=== PATIENT | female | born 1945 | race Caucasian/White ===

== ENCOUNTER 2019-04-10 21:38 | Emergency (ER) | payer MEDICARE ==
[2019-04-10 22:33] LABS: #Basophils 0.1 thou/uL (0.0-0.2); #Eosinphils 0.3 thou/uL (0.0-0.7); #Monocytes 0.7 thou/uL (0.11-0.59); #Neutrophils 5.2 thou/uL (1.40-6.50); %Basophils 1.3 % (0.0-1.0); %Eosinophils 2.4 % (0.0-10.0); %Lymphocytes 44.2 % (21.0-51.0); %Neutrophils 46.1 % (42.0-75.0); Hemoglobin 12.7 g/dL (12.0-16.0); Mean Corpuscular Hemoglobin 30.6 pg (27.0-31.0); Mean Corpuscular Volume 87.6 fL (78.0-98.0); Mean Platelet Volume 9.5 fL (7.4-10.4); Platelet Count 288 thou/uL (130-400); RBC Distribution Width 11.5 % (11.5-14.5); Red Blood Cell (RBC) Count 4.14 mill/uL (4.20-5.40); White Blood Cell (WBC) Count 11.3 thou/uL (4.8-10.8)
[2019-04-10 22:34] LABS: Bilirubin Negative (Negative); Blood, Urine Negative (Negative); Clarity Clear (Clear); Glucose, Urine (Dipstick) Negative (Negative); Leukocyte Small (Negative); Nitrite Negative (Negative); Protein, Urine (Dipstick) Negative (Neg-Trace); Urobilinogen 0.2 mg/dL (0.2-1.0); pH, Urine 5.5 (5.0-9.0)
[2019-04-10 22:39] LABS: Specific Gravity, Urine 1.003 (1.002-1.036)
[2019-04-10 22:43] LABS: Bacteria/HPF None Seen HPF (None Seen); Hyaline Casts/LPF NONE SEEN LPF (0-3 Hyaline); RBC/HPF None Seen HPF (0-3); Squamous Epithelial 0-3 HPF (0-3)
[2019-04-10 22:48] LABS: ALT (SGPT) 8 U/L (8-55); AST (SGOT) 13 U/L (5-34); Albumin 4.2 g/dL (3.4-4.8); Alkaline Phosphatase 77 U/L (40-150); Anion Gap 11 mmol/L (10-20); BUN (Urea Nitrogen) 10 mg/dL (9.8-20.1); Bilirubin, Total 0.3 mg/dL (0.2-1.2); Calc. Creatinine Clearance 0 mL/min (70-130); Calcium 9.2 mg/dL (7.8-10.44); Carbon Dioxide 28 mmol/L (23-31); Chloride 105 mmol/L (98-107); Estimated GFR-MDRD 59; Globulin 2.5 g/dL (2.4-3.5); Glucose 81 mg/dL (83-110); Lipase 15 U/L (8-78); Potassium 3.5 mmol/L (3.5-5.1); Protein, Total 6.7 g/dL (6.0-8.3); Sodium 140 mmol/L (136-145)
--- NOTE | 2019-04-10 23:10 | CT ---
CT Abdomen Pelvis WO Con 04/10/2019 10:14 PM HISTORY: Abdominal pain. Foul-smelling urine and black stools. COMPARISON: 01/09/2013. Technique: Multiple contiguous axial CT images are obtained through the abdomen and pelvis without IV contrast. Coronal reformats are provided. FINDINGS: This examination is limited for the evaluation of solid organs and vascular structures due to the lac k of intravenous contrast. Lower Chest: A calcified granuloma is seen at the right lung base. The lung bases are otherwise clear . Abdomen: Liver: Few calcified granulomata are seen in the left hepatic lobe. A subcentimeter too small to clement acterize hypodense lesion is seen at the posterior aspect posterior segment left hepatic lobe. Gallbladder: Postcholecystectomy changes. Pancreas: Atrophy and fatty replaced but otherwise demonstrates grossly normal nonenhanced CT appeara nce. Spleen: Calcified granulomata are seen. Adrenals: within normal limits. Kidneys: No renal calculi are visualized, and there is no evidence of hydronephrosis. Ureters: No ureteral calculus is seen.. Pelvis: Urinary bladder: Decompressed but grossly normal nonenhanced CT appearance. Reproductive Organs: There is evidence of hysterectomy. Lymph Nodes: No enlarged lymph nodes. Bowel: Postsurgical changes of the stomach are seen. There is colonic diverticulosis. Small amount of retained fecal material is seen throughout the colon. Appendix: The appendix is normal in caliber. Peritoneum: No free fluid, free air, or fluid collection. Retroperitoneum: within normal limits. Vessels: Vascular calcifications are seen in the abdominal aorta and involving the iliac arteries.. Abdominal Wall: A tiny fat-containing umbilical hernia is present. Bones: Degenerative changes are again seen in the spine which do appear mildly progressed from prior exam. IMPRESSION: 1. No renal or ureteral calculi are seen bilaterally. 2. No CT evidence of appendicitis. 3. Postsurgical changes related to cholecystectomy with postsurgical changes involving the stomach. 4. Colonic diverticulosis.
[2019-04-10] MEDS ORDERED: Bacitracin Zinc 1 Packet ONE (23:19)
== END 2019-04-10 23:28 | disposition home or self-care (01) ==
LOC: SCSER 21:38
DX: S51.851A Open bite of right forearm, initial encounter (principal); N39.0 Urinary tract infection, site not specified; E03.9 Hypothyroidism, unspecified; M06.9 Rheumatoid arthritis, unspecified; I10 Essential (primary) hypertension; I49.9 Cardiac arrhythmia, unspecified; F41.9 Anxiety disorder, unspecified; F32.9 Major depressive disorder, single episode, unspecified; I25.10 Atherosclerotic heart disease of native coronary artery without angina pectoris; Z86.73 Personal history of transient ischemic attack (TIA), and cerebral infarction without residual deficits; W54.0XXA Bitten by dog, initial encounter
CPT/HCPCS: 36415; 74176; 80053; 81003; 81015; 82274; 83605; 83690; 85025; 87086

== ENCOUNTER 2019-07-06 13:47 | Emergency (ER) | payer MEDICARE ==
[2019-07-06 14:48] LABS: #Basophils 0.1 thou/uL (0.0-0.2); #Eosinphils 0.2 thou/uL (0.0-0.7); #Lymphocytes 3.4 thou/uL (1.20-3.40); #Monocytes 0.6 thou/uL (0.11-0.59); #Neutrophils 4.1 thou/uL (1.40-6.50); %Basophils 1.1 % (0.0-1.0); %Eosinophils 2.2 % (0.0-10.0); %Lymphocytes 40.3 % (21.0-51.0); %Monocytes 7.6 % (0.0-10.0); %Neutrophils 48.9 % (42.0-75.0); Hemoglobin 13.9 g/dL (12.0-16.0); Mean Corpuscular HGB CONC 34.1 g/dL (32.0-36.0); Mean Platelet Volume 8.6 fL (7.4-10.4); Platelet Count 352 thou/uL (130-400); RBC Distribution Width 11.6 % (11.5-14.5); Red Blood Cell (RBC) Count 4.64 mill/uL (4.20-5.40); White Blood Cell (WBC) Count 8.4 thou/uL (4.8-10.8)
--- NOTE | 2019-07-06 14:54 | CT ---
CT HEAD WITHOUT IV CONTRAST COMPARISON: 08/10/2016 HISTORY: Headache for past 24 hours with associated blurred vision. TECHNIQUE: Axial CT imaging at 5 mm intervals from vertex through skull base without contrast FINDINGS: There is mild cerebral volume loss similar to the prior study and not unexpected for patient's age. T here is no evidence of an acute infarction, hemorrhage, mass effect, or midline shift. The ventricular system is normal in size, shape, and position. Visualized paranasal sinuses are clear. Osseous structures appear intact. IMPRESSION: 1. No acute intracranial abnormality demonstrated.
[2019-07-06 15:11] LABS: ALT (SGPT) 17 U/L (8-55); AST (SGOT) 17 U/L (5-34); Albumin 4.2 g/dL (3.4-4.8); Alkaline Phosphatase 85 U/L (40-150); Anion Gap 13 mmol/L (10-20); BUN (Urea Nitrogen) 12 mg/dL (9.8-20.1); Bilirubin, Total 0.5 mg/dL (0.2-1.2); CK (CPK) 21 U/L (29-168); Calc. Creatinine Clearance 0 mL/min (70-130); Calcium 9.5 mg/dL (7.8-10.44); Carbon Dioxide 25 mmol/L (23-31); Chloride 106 mmol/L (98-107); Estimated GFR-MDRD 68; Globulin 2.7 g/dL (2.4-3.5); Glucose 98 mg/dL (83-110); Potassium 3.7 mmol/L (3.5-5.1); Protein, Total 6.9 g/dL (6.0-8.3); Sodium 140 mmol/L (136-145)
--- NOTE | 2019-07-06 15:14 | RAD ---
PORTABLE CHEST: HISTORY: Headache. FINDINGS: Lung burch are clear. Heart and mediastinum unremarkable. Vascular markings normal. Heart size wi thin normal range. IMPRESSION: No acute process. POS: [facility]
[2019-07-06] MEDS ORDERED: Ketorolac Tromethamine 30 MG/ML VIAL ONE (16:31)
[2019-07-06] MEDS ORDERED: Magnesium 2 GM/50 ML BAG (IN WATER) ONE (16:31)
[2019-07-06 16:35] LABS: Bilirubin Negative (Negative); Blood, Urine Negative (Negative); Glucose, Urine (Dipstick) Negative (Negative); Leukocyte Moderate (Negative); Nitrite Positive (Negative); Protein, Urine (Dipstick) Negative (Neg-Trace); Urobilinogen 0.2 mg/dL (Less than 2)
[2019-07-06 16:36] LABS: Clarity Hazy (Clear)
[2019-07-06 16:50] LABS: RBC/HPF 0-3 HPF (0-3); Squamous Epithelial 0-3 HPF (0-3)
[2019-07-06 16:51] LABS: Bacteria/HPF 3+ HPF (None Seen)
== END 2019-07-06 17:29 | disposition home or self-care (01) ==
LOC: ERS 13:47
DX: R51 Headache (principal); N39.0 Urinary tract infection, site not specified; I10 Essential (primary) hypertension; K21.9 Gastro-esophageal reflux disease without esophagitis; I25.10 Atherosclerotic heart disease of native coronary artery without angina pectoris; E03.9 Hypothyroidism, unspecified; F41.9 Anxiety disorder, unspecified; F32.9 Major depressive disorder, single episode, unspecified; Z79.899 Other long term (current) drug therapy
CPT/HCPCS: 70450; 71045; 80053; 81003; 81015; 82550; 83690; 84484; 85025; 87077; 87086; 87186; 93005; 96361; 96365; 96374; J1885; J3475

== ENCOUNTER 2019-08-24 10:37 | Outpatient (CLI) | payer MEDICARE ==
--- NOTE | 2019-08-24 11:31 | ULT ---
EXAM: Bilateral lower extremity venous duplex: Deep veins evaluated with color Doppler, spectral analysis, and compression. INDICATIONS: Bilateral lower extremity pain and edema. FINDINGS: Deep veins interrogated include common femoral vein, femoral vein, popliteal vein, and post erior tibial vein. These veins show normal compression and blood flow. No evidence of DVT. Focal fluid echogenicity of the right popliteal region approximately 2.9 x 0.3 cm suggests a Fierro cy st. Smaller probable Fierro cyst of the left popliteal fossa, as well, approximately 1.5 cm in length. IMPRESSION: Negative Bilateral venous duplex exam. Fierro cyst of bilateral popliteal fossa, as above.
--- NOTE | 2019-08-24 12:24 | MMO ---
Bilateral MAMMO Bilat Screen [facility]. CLINICAL HISTORY: Patient is 73 years old and is seen for screening. The patient has the following family history of breast cancer: aunt, at age 36. The patient has no personal history of cancer. The patient has a history of right Lumpectomy in 1984 - benign. VIEWS: The views performed were: bilateral craniocaudal with tomosynthesis and bilateral mediolateral oblique with tomosynthesis. This study has been interpreted with the assistance of computer-aided detection. MAMMOGRAM FINDINGS: There are scattered fibroglandular densities. There are benign appearing calcifications seen in both breasts. There are also vascular calcifications. There are no suspicious masses, suspicious calcifications, or new areas of architectural distortion. IMPRESSION: THERE IS NO MAMMOGRAPHIC EVIDENCE OF MALIGNANCY. A ROUTINE FOLLOW-UP MAMMOGRAM IN 1 YEAR IS RECOMMENDED. THE RESULTS OF THIS EXAM WERE SENT TO THE PATIENT. ACR BI-RADS Category 2 - Benign finding MAMMOGRAPHY NOTE: 1. A negative mammogram report should not delay a biopsy if a dominant of clinically suspicious mass is present. 2. Approximately 10% to 15% of breast cancers are not detected by mammography. 3. Adenosis and dense breasts may obscure an underlying neoplasm. Reported by: TAMARA PATEL MD Electonically Signed: [id number]
== END 2019-08-24 10:38 | disposition home or self-care (01) ==
LOC: ULT 10:37
PROVIDERS: ATTEND Student in an Organized Health Care Education/Training Program
DX: Z12.31 Encounter for screening mammogram for malignant neoplasm of breast (principal); R22.42 Localized swelling, mass and lump, left lower limb; M71.22 Synovial cyst of popliteal space [Baker], left knee; M71.21 Synovial cyst of popliteal space [Baker], right knee
CPT/HCPCS: 77063; 77067; 93970

== ENCOUNTER 2019-09-23 22:30 | Emergency (ER) | payer MEDICARE ==
[2019-09-23 23:20] LABS: Bilirubin Negative (Negative); Blood, Urine Negative (Negative); Clarity Clear (Clear); Glucose, Urine (Dipstick) Normal (Negative); Leukocyte 25 Leu/uL (Negative); Nitrite Negative (Negative); Protein, Urine (Dipstick) Negative (Neg-Trace); RBC/HPF 0-3 HPF (0-3); Renal Epithelial 0-3 HPF (None Seen); Squamous Epithelial 0-3 HPF (0-3); Urobilinogen Normal mg/dL (Less than 2)
[2019-09-23 23:24] LABS: Bacteria/HPF 3+ HPF (None Seen)
[2019-09-23 23:36] LABS: #Basophils 0.1 thou/uL (0.0-0.2); #Eosinphils 0.3 thou/uL (0.0-0.7); #Lymphocytes 4.2 thou/uL (1.20-3.40); #Monocytes 0.8 thou/uL (0.11-0.59); #Neutrophils 6.4 thou/uL (1.40-6.50); %Basophils 1.1 % (0.0-1.0); %Eosinophils 2.4 % (0.0-10.0); %Lymphocytes 35.6 % (21.0-51.0); %Monocytes 6.7 % (0.0-10.0); %Neutrophils 54.2 % (42.0-75.0); Mean Corpuscular HGB CONC 34.3 g/dL (32.0-36.0); Mean Corpuscular Hemoglobin 29.9 pg (27.0-31.0); Mean Corpuscular Volume 87.4 fL (78.0-98.0); Mean Platelet Volume 8.6 fL (7.4-10.4); Platelet Count 341 thou/uL (130-400); RBC Distribution Width 11.6 % (11.5-14.5); Red Blood Cell (RBC) Count 4.34 mill/uL (4.20-5.40); White Blood Cell (WBC) Count 11.8 thou/uL (4.8-10.8)
[2019-09-23] MEDS ORDERED: Ketorolac Tromethamine 30 MG/ML VIAL ONE (23:38)
[2019-09-23 23:58] LABS: ALT (SGPT) 8 U/L (8-55); AST (SGOT) 13 U/L (5-34); Albumin 4.3 g/dL (3.4-4.8); Alkaline Phosphatase 100 U/L (40-110); Anion Gap 14 mmol/L (10-20); BUN (Urea Nitrogen) 12 mg/dL (9.8-20.1); Bilirubin, Total 0.3 mg/dL (0.2-1.2); CK (CPK) 35 U/L (29-168); Calc. Creatinine Clearance 0 mL/min (70-130); Carbon Dioxide 26 mmol/L (23-31); Chloride 105 mmol/L (98-107); Estimated GFR-MDRD 53; Globulin 2.2 g/dL (2.4-3.5); Glucose 107 mg/dL (83-110); Lipase 11 U/L (8-78); Potassium 3.6 mmol/L (3.5-5.1); Protein, Total 6.5 g/dL (6.0-8.3); Sodium 141 mmol/L (136-145)
== END 2019-09-24 01:19 | disposition home or self-care (01) ==
LOC: ERS 22:30
DX: M62.838 Other muscle spasm (principal); R35.0 Frequency of micturition; I25.10 Atherosclerotic heart disease of native coronary artery without angina pectoris; I49.9 Cardiac arrhythmia, unspecified; E03.9 Hypothyroidism, unspecified; I10 Essential (primary) hypertension; M79.7 Fibromyalgia; K21.9 Gastro-esophageal reflux disease without esophagitis; F41.9 Anxiety disorder, unspecified; F32.9 Major depressive disorder, single episode, unspecified; Z86.73 Personal history of transient ischemic attack (TIA), and cerebral infarction without residual deficits; Z79.899 Other long term (current) drug therapy
CPT/HCPCS: 36415; 80053; 81003; 81015; 82550; 83690; 84484; 85025; 87077; 87086; 87186; 93005; 96374; J1885

== ENCOUNTER 2019-10-03 12:41 | Emergency (ER) | payer MEDICARE ==
[2019-10-03 13:36] LABS: Bilirubin Negative (Negative); Blood, Urine Negative (Negative); Clarity Clear (Clear); Glucose, Urine (Dipstick) Normal (Negative); Leukocyte Negative Leu/uL (Negative); Nitrite Negative (Negative); Protein, Urine (Dipstick) Negative (Neg-Trace); Urobilinogen Normal mg/dL (Less than 2)
--- NOTE | 2019-10-03 14:11 | RAD ---
2 view chest: [10/03/2019] Comparion:None available HISTORY: Right-sided rib pain, urinary tract infection FINDINGS: Postsurgical anchors overlie the right humeral head. No pneumothorax or pleural fluid. No f ocal consolidation or alveolar edema. There is multilevel mid thoracic spine disc space narrowing with degenerative endplate change and anterior osteophyte formation. IMPRESSION: No acute findings.
--- NOTE | 2019-10-03 14:20 | RAD ---
Radiograph right knee 4 views: DATE: 10/03/2019 HISTORY: Acute traumatic injury to right knee. FINDINGS: Small joint effusion. Patellofemoral compartment: Significant joint space narrowing and moderate osteophytosis. Medial compartment: High-grade joint space narrowing. Moderate osteophytosis. Lateral compartment: Little or no joint space narrowing. Mild to moderate osteophytosis. Diffuse osteopenia. No dislocation. No fracture identified. IMPRESSION: 1. No acute fracture identified. 2. 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 3. Small joint effusion. 4. Osteopenia.
--- NOTE | 2019-10-03 14:21 | RAD ---
Radiograph right ribs 3 views: DATE: 10/03/2019 HISTORY: 73-year-old female with acute traumatic right rib pain FINDINGS: Diffuse osteopenia. Small metallic anchors at inferior glenoid and humeral head. No displaced acute r ight rib fracture identified. Right lateral costophrenic angle is sharp. No right-sided pneumothorax identified. Right lung is relatively clear. IMPRESSION: 1. No acute right rib fracture identified. 2. Status post right rotator cuff repair.
[2019-10-03] MEDS ORDERED: HYDROcodone/Acetaminophen 10/325 mg Tablet ONE (16:14)
== END 2019-10-03 16:29 | disposition home or self-care (01) ==
LOC: ERS 12:41
DX: S83.91XA Sprain of unspecified site of right knee, initial encounter (principal); S20.211A Contusion of right front wall of thorax, initial encounter; K21.9 Gastro-esophageal reflux disease without esophagitis; E03.9 Hypothyroidism, unspecified; I25.10 Atherosclerotic heart disease of native coronary artery without angina pectoris; M06.9 Rheumatoid arthritis, unspecified; M41.9 Scoliosis, unspecified; F41.9 Anxiety disorder, unspecified; Z86.73 Personal history of transient ischemic attack (TIA), and cerebral infarction without residual deficits; X50.0XXA Overexertion from strenuous movement or load, initial encounter
CPT/HCPCS: 71046; 81003

== ENCOUNTER 2021-01-12 16:54 | Emergency (ER) | payer MEDICARE ==
--- NOTE | 2021-01-12 21:12 | RAD ---
Frontal radiograph pelvis: 01/12/2021 COMPARISON: 07/26/2011 HISTORY: Pain and swelling of the left lower extremity FINDINGS: There is no widening of the sacroiliac joints or the pubic symphysis. The pelvic ring is in tact. The femoral heads project normally over the respective acetabulum. No displaced fracture seen. IMPRESSION: No acute fracture or dislocation noted.
--- NOTE | 2021-01-12 21:38 | ULT ---
Left lower extremity venous Doppler ultrasound: 01/12/2021 COMPARISON: None HISTORY: Left lower extremity pain, redness, assess for DVT TECHNIQUE: Multiplanar grayscale sonographic imaging of the venous structures of the left lower extre mity obtained with color flow and spectral analysis FINDINGS: Left common femoral vein, greater saphenous vein, profunda femoral vein, femoral vein, popl iteal vein, and posterior tibial vein are patent. Normal blood flow, augmentation, and compression within the deep venous system on the left. No evidence for deep venous thrombosis. IMPRESSION: No evidence for deep venous thrombosis of the left lower extremity.
[2021-01-12 22:08] LABS: #Basophils 0.1 thou/uL (0.0-0.2); #Eosinphils 0.2 thou/uL (0.0-0.7); #Lymphocytes 4.7 thou/uL (1.20-3.40); #Monocytes 0.6 thou/uL (0.11-0.59); #Neutrophils 6.4 thou/uL (1.40-6.50); %Basophils 0.4 % (0.0-1.0); %Eosinophils 1.5 % (0.0-10.0); %Lymphocytes 38.9 % (21.0-51.0); %Monocytes 5.4 % (0.0-10.0); %Neutrophils 53.8 % (42.0-75.0); Hemoglobin 13.7 g/dL (12.0-16.0); Mean Corpuscular HGB CONC 34.3 g/dL (32.0-36.0); Mean Corpuscular Hemoglobin 30.8 pg (27.0-31.0); Mean Corpuscular Volume 89.7 fL (78.0-98.0); Mean Platelet Volume 8.8 fL (7.4-10.4); Platelet Count 321 thou/uL (130-400); RBC Distribution Width 11.9 % (11.5-14.5); Red Blood Cell (RBC) Count 4.46 mill/uL (4.20-5.40); White Blood Cell (WBC) Count 11.9 thou/uL (4.8-10.8)
[2021-01-12 22:31] LABS: ALT (SGPT) 7 U/L (8-55); AST (SGOT) 13 U/L (5-34); Albumin 4.1 g/dL (3.4-4.8); Alkaline Phosphatase 75 U/L (40-110); Anion Gap 12 mmol/L (10-20); BUN (Urea Nitrogen) 15 mg/dL (9.8-20.1); Bilirubin, Total 0.4 mg/dL (0.2-1.2); Calc. Creatinine Clearance 0 mL/min (70-130); Carbon Dioxide 28 mmol/L (23-31); Chloride 108 mmol/L (98-107); Globulin 2.7 g/dL (2.4-3.5); Glucose 102 mg/dL (83-110); Potassium 3.7 mmol/L (3.5-5.1); Protein, Total 6.8 g/dL (5.8-8.1); Sodium 144 mmol/L (136-145)
[2021-01-12] MEDS ORDERED: Morphine 4 MG/ML VIAL ONE (22:57)
== END 2021-01-12 23:15 | disposition home or self-care (01) ==
LOC: ERS 16:54
DX: M79.662 Pain in left lower leg (principal); K21.9 Gastro-esophageal reflux disease without esophagitis; I25.10 Atherosclerotic heart disease of native coronary artery without angina pectoris; E03.9 Hypothyroidism, unspecified; I10 Essential (primary) hypertension; M79.7 Fibromyalgia; M06.9 Rheumatoid arthritis, unspecified; Z86.73 Personal history of transient ischemic attack (TIA), and cerebral infarction without residual deficits; I48.91 Unspecified atrial fibrillation
CPT/HCPCS: 36415; 72170; 80053; 85025; 85379; 96372; J2270

== ENCOUNTER 2021-01-20 17:50 | Emergency (ER) | payer MEDICARE ==
--- NOTE | 2021-01-20 18:22 | RAD ---
Exam:Exam: 4 views left knee HISTORY: Fall 3 weeks ago. Persistent pain COMPARISON: 04/04/2005 FINDINGS: Scattered demineralization involving the distal femur, proximal tibia centered along the louise int space. Mild loss of joint space height along the medial compartment. No acute fracture. There is no joint effusion. IMPRESSION: No joint effusion. No fracture. If there is concern for internal derangement, consider MR Yfn.
[2021-01-20] MEDS ORDERED: Ketorolac Tromethamine 30 MG/ML VIAL ONE (19:15)
== END 2021-01-20 19:30 | disposition home or self-care (01) ==
LOC: ERS 17:50
DX: M25.562 Pain in left knee (principal); K21.9 Gastro-esophageal reflux disease without esophagitis; I25.10 Atherosclerotic heart disease of native coronary artery without angina pectoris; E03.9 Hypothyroidism, unspecified; M79.7 Fibromyalgia; M06.9 Rheumatoid arthritis, unspecified; I10 Essential (primary) hypertension; M41.9 Scoliosis, unspecified; I48.91 Unspecified atrial fibrillation; M32.9 Systemic lupus erythematosus, unspecified; Z86.73 Personal history of transient ischemic attack (TIA), and cerebral infarction without residual deficits
CPT/HCPCS: 96372; J1885

== ENCOUNTER 2021-07-22 15:01 | Emergency (ER) | payer MEDICARE ==
[2021-07-22] MEDS ORDERED: Ketorolac Tromethamine 30 MG/ML VIAL ONE ×2 (16:18)
== END 2021-07-22 16:50 | disposition home or self-care (01) ==
LOC: ERS 15:01
DX: M17.12 Unilateral primary osteoarthritis, left knee (principal); K21.9 Gastro-esophageal reflux disease without esophagitis; E03.9 Hypothyroidism, unspecified; I10 Essential (primary) hypertension; M06.9 Rheumatoid arthritis, unspecified
CPT/HCPCS: 96372; J1885

== ENCOUNTER 2021-08-28 16:22 | Outpatient (CLI) | payer MEDICARE | END 2021-08-28 16:23 | disposition home or self-care (01) | LOC: RAD-FRANK 16:22 | PROVIDERS: ATTEND Nurse Practitioner Family | DX: M25.511 Pain in right shoulder (principal) ==

== ENCOUNTER 2021-10-14 08:20 | Outpatient (CLI) | payer MEDICARE | END 2021-10-14 08:21 | disposition home or self-care (01) | LOC: RAD-FRANK 08:20 | PROVIDERS: ATTEND Nurse Practitioner Family | DX: S52.591S Other fractures of lower end of right radius, sequela (principal); S92.331A Displaced fracture of third metatarsal bone, right foot, initial encounter for closed fracture; S92.341A Displaced fracture of fourth metatarsal bone, right foot, initial encounter for closed fracture ==

== ENCOUNTER 2022-03-27 09:15 | Outpatient (CLI) | payer MEDICARE | END 2022-03-27 09:16 | disposition home or self-care (01) | LOC: TBSIIMAG 09:15 | PROVIDERS: ATTEND Neurological Surgery | DX: M48.56XA Collapsed vertebra, not elsewhere classified, lumbar region, initial encounter for fracture (principal); M47.816 Spondylosis without myelopathy or radiculopathy, lumbar region | CPT/HCPCS: 72100 ==

== ENCOUNTER 2022-04-11 08:58 | Outpatient (CLI) | payer OTHER | END 2022-04-11 08:59 | disposition home or self-care (01) | LOC: TBSIIMAG 08:58 | PROVIDERS: ATTEND Neurological Surgery | DX: M48.062 Spinal stenosis, lumbar region with neurogenic claudication (principal); M54.2 Cervicalgia; M47.812 Spondylosis without myelopathy or radiculopathy, cervical region; M47.813 Spondylosis without myelopathy or radiculopathy, cervicothoracic region; S32.030A Wedge compression fracture of third lumbar vertebra, initial encounter for closed fracture; M43.16 Spondylolisthesis, lumbar region; M43.17 Spondylolisthesis, lumbosacral region; M47.817 Spondylosis without myelopathy or radiculopathy, lumbosacral region; M48.07 Spinal stenosis, lumbosacral region; M47.816 Spondylosis without myelopathy or radiculopathy, lumbar region; M48.061 Spinal stenosis, lumbar region without neurogenic claudication; R60.0 Localized edema | CPT/HCPCS: 72141; 72148 ==

== ENCOUNTER 2022-08-11 16:51 | Emergency (ER) | payer MEDICARE ==
[2022-08-11 18:37] LABS: #Basophils 0.1 thou/uL (0.0-0.2); #Eosinphils 0.1 thou/uL (0.0-0.7); #Lymphocytes 3.5 thou/uL (1.20-3.40); #Monocytes 0.6 thou/uL (0.11-0.59); #Neutrophils 5.3 thou/uL (1.40-6.50); %Basophils 0.6 % (0.0-1.0); %Eosinophils 1.1 % (0.0-10.0); %Lymphocytes 36.9 % (21.0-51.0); %Monocytes 6.1 % (0.0-10.0); %Neutrophils 55.3 % (42.0-75.0); Hemoglobin 12.8 g/dL (12.0-16.0); Mean Corpuscular HGB CONC 33.2 g/dL (32.0-36.0); Mean Corpuscular Hemoglobin 30.8 pg (27.0-31.0); Mean Corpuscular Volume 92.7 fL (78.0-98.0); Mean Platelet Volume 9.8 fL (7.4-10.4); Platelet Count 290 thou/uL (130-400); RBC Distribution Width 12.3 % (11.5-14.5); Red Blood Cell (RBC) Count 4.16 mill/uL (4.20-5.40); White Blood Cell (WBC) Count 9.5 thou/uL (4.8-10.8)
[2022-08-11 18:58] LABS: ALT (SGPT) Less than 7 U/L (8-55); AST (SGOT) 9 U/L (5-34); Albumin 4.2 g/dL (3.4-4.8); Alkaline Phosphatase 63 U/L (40-110); Anion Gap 13 mmol/L (10-20); BUN (Urea Nitrogen) 12 mg/dL (9.8-20.1); Bilirubin, Total 0.7 mg/dL (0.2-1.2); Calc. Creatinine Clearance 0 mL/min (70-130); Calcium 9.2 mg/dL (7.8-10.44); Carbon Dioxide 23 mmol/L (23-31); Chloride 107 mmol/L (98-107); Estimated GFR 54; Globulin 2.5 g/dL (2.4-3.5); Glucose 106 mg/dL (83-110); Potassium 4.3 mmol/L (3.5-5.1); Protein, Total 6.7 g/dL (5.8-8.1); Sodium 139 mmol/L (136-145)
[2022-08-11 19:37] LABS: Bacteria/HPF 4+ HPF (None Seen); Bilirubin Negative (Negative); Blood, Urine Negative (Negative); Clarity Turbid (Clear); Glucose, Urine (Dipstick) Normal (Negative); Ketone, Urine Negative (Negative); Leukocyte 250 Leu/uL (Negative); Nitrite 2+ (Negative); Protein, Urine (Dipstick) 30 mg/dL (Neg-Trace); RBC/HPF 0-3 HPF (0-3); Specific Gravity, Urine 1.025 (1.002-1.036); Squamous Epithelial 0-3 HPF (0-3); WBC/HPF 21-50 HPF (0-3); pH, Urine 5.5 (5.0-9.0)
== END 2022-08-11 21:33 | disposition home or self-care (01) ==
LOC: ERS 16:51
DX: N30.00 Acute cystitis without hematuria (principal); I25.10 Atherosclerotic heart disease of native coronary artery without angina pectoris; I10 Essential (primary) hypertension; E03.9 Hypothyroidism, unspecified; K21.9 Gastro-esophageal reflux disease without esophagitis; M06.9 Rheumatoid arthritis, unspecified; Z79.899 Other long term (current) drug therapy
CPT/HCPCS: 36415; 80053; 81003; 81015; 85025; 87077; 87086; 87186; 99284

== ENCOUNTER 2023-02-21 01:37 | Emergency (ER) | payer MEDICARE ==
[2023-02-21] MEDS ORDERED: Piperacillin/Tazobactam 3.375 GM VIAL ONE (02:10)
[2023-02-21 03:57] LABS: #Eosinphils 0.2 thou/uL (0.0-0.7); #Lymphocytes 2.6 thou/uL (1.20-3.40); #Monocytes 0.5 thou/uL (0.11-0.59); #Neutrophils 2.8 thou/uL (1.40-6.50); %Basophils 0.3 % (0.0-1.0); %Eosinophils 3.7 % (0.0-10.0); %Lymphocytes 41.8 % (21.0-51.0); %Monocytes 8.8 % (0.0-10.0); %Neutrophils 45.4 % (42.0-75.0); Hemoglobin 11.1 g/dL (12.0-16.0); Mean Corpuscular HGB CONC 32.7 g/dL (32.0-36.0); Mean Corpuscular Hemoglobin 30.1 pg (27.0-31.0); Mean Corpuscular Volume 92.2 fl (78.0-98.0); Mean Platelet Volume 9.6 fL (7.4-10.4); Platelet Count 198 10x3/uL (130-400); RBC Distribution Width 12.7 % (11.5-14.5); Red Blood Cell (RBC) Count 3.68 mill/uL (4.20-5.40); White Blood Cell (WBC) Count 6.1 10x3/uL (4.8-10.8)
[2023-02-21 04:26] LABS: ALT (SGPT) 11 U/L (8-55); AST (SGOT) 28 U/L (5-34); Albumin 3.1 g/dL (3.4-4.8); Alkaline Phosphatase 69 U/L (40-110); Anion Gap 12 mmol/L (10-20); BUN (Urea Nitrogen) 13 mg/dL (9.8-20.1); Bilirubin, Total 0.4 mg/dL (0.2-1.2); Calc. Creatinine Clearance 0 mL/min (70-130); Calcium 7.5 mg/dL (7.8-10.44); Carbon Dioxide 18 mmol/L (23-31); Chloride 115 mmol/L (98-107); Estimated GFR 57; Globulin 2.6 g/dL (2.4-3.5); Glucose 90 mg/dL (83-110); Potassium 4.1 mmol/L (3.5-5.1); Protein, Total 5.7 g/dL (5.8-8.1); Sodium 141 mmol/L (136-145)
[2023-02-21] MEDS ORDERED: Iopamidol-370 76% 500 ML MDV (1 ML CHARGE) ONE (14:44)
== END 2023-02-21 22:05 | disposition home or self-care (01) ==
LOC: ERS 01:37
DX: R19.7 Diarrhea, unspecified (principal); E86.0 Dehydration; K21.9 Gastro-esophageal reflux disease without esophagitis; I25.10 Atherosclerotic heart disease of native coronary artery without angina pectoris; E03.9 Hypothyroidism, unspecified; I10 Essential (primary) hypertension; Z86.73 Personal history of transient ischemic attack (TIA), and cerebral infarction without residual deficits; Z79.82 Long term (current) use of aspirin; Z79.899 Other long term (current) drug therapy
CPT/HCPCS: 36415; 74177; 80053; 85025; 87040; 93005; 96361; 96365; J2543; Q9967

== ENCOUNTER 2023-03-01 17:41 | Emergency (ER) | payer MEDICARE ==
[2023-03-01] MEDS ORDERED: HYDROcodone/Acetaminophen 5/325 mg Tablet ONE (18:51)
[2023-03-01 19:39] LABS: #Eosinphils 0.2 thou/uL (0.0-0.7); #Lymphocytes 2.7 thou/uL (1.20-3.40); #Monocytes 0.8 thou/uL (0.11-0.59); #Neutrophils 5.5 thou/uL (1.40-6.50); %Basophils 0.5 % (0.0-1.0); %Eosinophils 2.5 % (0.0-10.0); %Lymphocytes 29.3 % (21.0-51.0); %Monocytes 8.7 % (0.0-10.0); Hemoglobin 12.2 g/dL (12.0-16.0); Mean Corpuscular HGB CONC 33.9 g/dL (32.0-36.0); Mean Corpuscular Hemoglobin 30.6 pg (27.0-31.0); Mean Corpuscular Volume 90.5 fl (78.0-98.0); Mean Platelet Volume 9.5 fL (7.4-10.4); Platelet Count 247 10x3/uL (130-400); RBC Distribution Width 12.8 % (11.5-14.5); Red Blood Cell (RBC) Count 3.98 mill/uL (4.20-5.40); White Blood Cell (WBC) Count 9.3 10x3/uL (4.8-10.8)
[2023-03-01 20:02] LABS: ALT (SGPT) Less than 7 U/L (8-55); AST (SGOT) 10 U/L (5-34); Albumin 3.6 g/dL (3.4-4.8); Alkaline Phosphatase 73 U/L (40-110); Anion Gap 12 mmol/L (10-20); BUN (Urea Nitrogen) 6 mg/dL (9.8-20.1); Bilirubin, Total 0.6 mg/dL (0.2-1.2); CK (CPK) 9 U/L (29-168); Calc. Creatinine Clearance 0 mL/min (70-130); Calcium 8.8 mg/dL (7.8-10.44); Carbon Dioxide 25 mmol/L (23-31); Chloride 106 mmol/L (98-107); Estimated GFR 67; Globulin 2.6 g/dL (2.4-3.5); Glucose 122 mg/dL (83-110); Protein, Total 6.2 g/dL (5.8-8.1); Sodium 140 mmol/L (136-145)
== END 2023-03-01 21:05 | disposition home or self-care (01) ==
LOC: ERS 17:41
DX: M10.9 Gout, unspecified (principal); K21.9 Gastro-esophageal reflux disease without esophagitis; E03.9 Hypothyroidism, unspecified; I10 Essential (primary) hypertension; Z86.73 Personal history of transient ischemic attack (TIA), and cerebral infarction without residual deficits; Z79.82 Long term (current) use of aspirin; Z79.899 Other long term (current) drug therapy
CPT/HCPCS: 36415; 80053; 82550; 85025; 86140

== ENCOUNTER 2023-05-07 10:52 | Outpatient (CLI) | payer MEDICARE | END 2023-05-07 10:53 | disposition home or self-care (01) | LOC: RAD-FRANK 10:52 | PROVIDERS: ATTEND Nurse Practitioner Family | DX: M54.2 Cervicalgia (principal); M47.812 Spondylosis without myelopathy or radiculopathy, cervical region | CPT/HCPCS: 72040 ==

== ENCOUNTER 2023-05-25 08:23 | Outpatient (CLI) | payer MEDICARE | END 2023-05-25 08:24 | disposition home or self-care (01) | LOC: RAD-FRANK 08:23 | PROVIDERS: ATTEND Nurse Practitioner Family | DX: R07.89 Other chest pain (principal) ==

== ENCOUNTER 2023-05-27 15:09 | Inpatient (IN) | payer MEDICARE ==
[2023-05-27 15:51] LABS: #Basophils 0.1 thou/uL (0.0-0.2); #Eosinphils 0.3 thou/uL (0.0-0.7); #Monocytes 0.8 thou/uL (0.11-0.59); #Neutrophils 5.7 thou/uL (1.40-6.50); %Basophils 0.7 % (0.0-1.0); %Eosinophils 3.1 % (0.0-10.0); %Lymphocytes 32.6 % (21.0-51.0); %Monocytes 8.1 % (0.0-10.0); Hemoglobin 11.3 g/dL (12.0-16.0); Mean Corpuscular HGB CONC 32.5 g/dL (32.0-36.0); Mean Corpuscular Hemoglobin 28.5 pg (27.0-31.0); Mean Corpuscular Volume 87.7 fl (78.0-98.0); Mean Platelet Volume 11.3 fL (7.4-10.4); Platelet Count 254 10x3/uL (130-400); RBC Distribution Width 14.4 % (11.5-14.5); Red Blood Cell (RBC) Count 3.97 mill/uL (4.20-5.40); White Blood Cell (WBC) Count 10.3 10x3/uL (4.8-10.8)
[2023-05-27 16:18] LABS: ALT (SGPT) Less than 7 U/L (8-55); AST (SGOT) 9 U/L (5-34); Albumin 3.9 g/dL (3.4-4.8); Alkaline Phosphatase 66 U/L (40-110); Anion Gap 13 mmol/L (10-20); BUN (Urea Nitrogen) 17 mg/dL (9.8-20.1); Bilirubin, Total 0.5 mg/dL (0.2-1.2); CK (CPK) 15 U/L (29-168); Calc. Creatinine Clearance 0 mL/min (70-130); Calcium 8.8 mg/dL (7.8-10.44); Carbon Dioxide 24 mmol/L (23-31); Chloride 105 mmol/L (98-107); Estimated GFR 38; Globulin 1.9 g/dL (2.4-3.5); Glucose 94 mg/dL (83-110); Magnesium 2.2 mg/dL (1.6-2.6); Potassium 4.3 mmol/L (3.5-5.1); Protein, Total 5.8 g/dL (5.8-8.1); Sodium 138 mmol/L (136-145)
[2023-05-27 16:42] LABS: Bacteria/HPF 4+ HPF (None Seen); Bilirubin Negative (Negative); Blood, Urine Negative (Negative); CAUTI Indications for Culture Alt mental st,lethar; Clarity Clear (Clear); Glucose, Urine (Dipstick) Normal (Negative); Ketone, Urine Negative (Negative); Leukocyte 250 Leu/uL (Negative); Nitrite 2+ (Negative); Protein, Urine (Dipstick) Negative (Neg-Trace); RBC/HPF 0-3 HPF (0-3); Specific Gravity, Urine 1.008 (1.002-1.036); Squamous Epithelial None Seen HPF (0-3); Urobilinogen Normal mg/dL (Less than 2); WBC/HPF 0-3 HPF (0-3)
[2023-05-27 16:44] LABS: Urine Culture Reflex No No
[2023-05-27] MEDS ORDERED: cefTRIAXone (ROCEPHIN) 2 GM VIAL ONE (18:27)
[2023-05-27] MEDS ORDERED: Calcium Carbonate 500 MG ChewTAB PO PRN (19:08)
[2023-05-27] MEDS ORDERED: Ondansetron ODT 4 MG TAB PO PRN (19:08)
[2023-05-27] MEDS ORDERED: Ondansetron PF 4 MG/2 ML Vial IVP PRN (19:08)
[2023-05-27] MEDS ORDERED: Senokot S 8.6-50 MG TAB PO PRN (19:08)
[2023-05-27] MEDS ORDERED: Sodium Chloride 0.9% 1,000 ML IV SCH (19:15)
[2023-05-27 21:01] LABS: Magnesium 2.1 mg/dL (1.6-2.6); Phosphorus 4.2 mg/dL (2.3-4.7)
[2023-05-27] MEDS: Heparin 5,000 UNITS/ML VIAL SC SCH (22:22)
[2023-05-28 01:02] VITALS: BMI 32.6
[2023-05-28 07:11] LABS: #Basophils 0.1 thou/uL (0.0-0.2); #Eosinphils 0.3 thou/uL (0.0-0.7); #Monocytes 0.5 thou/uL (0.11-0.59); #Neutrophils 3.2 thou/uL (1.40-6.50); %Basophils 0.7 % (0.0-1.0); %Eosinophils 4.5 % (0.0-10.0); %Lymphocytes 40.2 % (21.0-51.0); %Monocytes 7.3 % (0.0-10.0); Hemoglobin 10.8 g/dL (12.0-16.0); Mean Corpuscular HGB CONC 31.8 g/dL (32.0-36.0); Mean Corpuscular Hemoglobin 28.3 pg (27.0-31.0); Mean Corpuscular Volume 89.2 fl (78.0-98.0); Mean Platelet Volume 11.6 fL (7.4-10.4); Platelet Count 229 10x3/uL (130-400); RBC Distribution Width 14.4 % (11.5-14.5); Red Blood Cell (RBC) Count 3.81 mill/uL (4.20-5.40); White Blood Cell (WBC) Count 6.7 10x3/uL (4.8-10.8)
[2023-05-28 08:01] LABS: Anion Gap 12 mmol/L (10-20); BUN (Urea Nitrogen) 14 mg/dL (9.8-20.1); Calc. Creatinine Clearance 64 mL/min (70-130); Calcium 8.5 mg/dL (7.8-10.44); Carbon Dioxide 22 mmol/L (23-31); Chloride 110 mmol/L (98-107); Estimated GFR 55; Glucose 129 mg/dL (83-110); Potassium 3.8 mmol/L (3.5-5.1); Sodium 140 mmol/L (136-145)
[2023-05-28] MEDS ORDERED: hydrALAZINE 20 MG/ML VIAL SLOW IVP PRN (09:17)
[2023-05-28] MEDS: Heparin 5,000 UNITS/ML VIAL SC SCH ×2 (09:54→20:35)
[2023-05-28] MEDS: Lactated Ringer's 1,000 ML IV SCH (09:55)
[2023-05-28] MEDS: Acetaminophen 325 MG TAB PO PRN (11:23)
[2023-05-28] MEDS ORDERED: Cyclobenzaprine 10 MG TAB PO SCH (12:15)
[2023-05-28] MEDS: cefTRIAXone\\ROCEPHIN 1 GM in Sodium Chloride 0.9% 100 ML IVPB SCH (17:16)
[2023-05-28] MEDS: Cyclobenzaprine 10 MG TAB PO SCH (20:35)
[2023-05-28] MEDS: Flecainide 50 MG TAB PO SCH (20:35)
[2023-05-28] MEDS: clonazePAM 1 MG TAB PO PRN (20:41)
[2023-05-29] MEDS: Levothyroxine Sodium 25 MCG TAB PO SCH (05:17)
[2023-05-29] MEDS: Levothyroxine Sodium 112 MCG TAB PO SCH (05:17)
[2023-05-29] MEDS: Lactated Ringer's 1,000 ML IV SCH (05:17)
[2023-05-29] MEDS: Acetaminophen 325 MG TAB PO PRN (05:23)
[2023-05-29 06:38] LABS: #Basophils 0.1 thou/uL (0.0-0.2); #Eosinphils 0.4 thou/uL (0.0-0.7); #Monocytes 0.6 thou/uL (0.11-0.59); #Neutrophils 2.3 thou/uL (1.40-6.50); %Basophils 0.9 % (0.0-1.0); %Eosinophils 5.5 % (0.0-10.0); %Lymphocytes 49.7 % (21.0-51.0); %Neutrophils 34.6 % (42.0-75.0); Hemoglobin 10.8 g/dL (12.0-16.0); Mean Corpuscular HGB CONC 31.8 g/dL (32.0-36.0); Mean Corpuscular Hemoglobin 28.4 pg (27.0-31.0); Mean Corpuscular Volume 89.5 fl (78.0-98.0); Mean Platelet Volume 11.6 fL (7.4-10.4); Platelet Count 244 10x3/uL (130-400); RBC Distribution Width 14.6 % (11.5-14.5); White Blood Cell (WBC) Count 6.5 10x3/uL (4.8-10.8)
[2023-05-29 07:07] LABS: Anion Gap 10 mmol/L (10-20); BUN (Urea Nitrogen) 11 mg/dL (9.8-20.1); Calc. Creatinine Clearance 69 mL/min (70-130); Calcium 8.8 mg/dL (7.8-10.44); Carbon Dioxide 26 mmol/L (23-31); Chloride 111 mmol/L (98-107); Estimated GFR 61; Glucose 87 mg/dL (83-110); Potassium 4.3 mmol/L (3.5-5.1); Sodium 143 mmol/L (136-145)
[2023-05-29] MEDS: Flecainide 50 MG TAB PO SCH ×2 (09:10→20:44)
[2023-05-29] MEDS: Cyclobenzaprine 10 MG TAB PO SCH ×2 (09:10→20:45)
[2023-05-29] MEDS: Aspirin 81 mg Enteric Coated Tablet PO SCH (09:10)
[2023-05-29] MEDS: Heparin 5,000 UNITS/ML VIAL SC SCH ×2 (09:10→20:46)
[2023-05-29] MEDS: Rosuvastatin 5 MG TAB PO SCH (09:10)
[2023-05-29] MEDS: cefTRIAXone\\ROCEPHIN 1 GM in Sodium Chloride 0.9% 100 ML IVPB SCH (18:03)
[2023-05-29] MEDS: clonazePAM 1 MG TAB PO PRN (20:45)
[2023-05-30] MEDS: Levothyroxine Sodium 112 MCG TAB PO SCH (05:10)
[2023-05-30] MEDS: Levothyroxine Sodium 25 MCG TAB PO SCH (05:11)
[2023-05-30 06:47] LABS: #Basophils 0.1 thou/uL (0.0-0.2); #Eosinphils 0.3 thou/uL (0.0-0.7); #Monocytes 0.5 thou/uL (0.11-0.59); #Neutrophils 2.5 thou/uL (1.40-6.50); %Basophils 0.8 % (0.0-1.0); %Eosinophils 5.1 % (0.0-10.0); %Neutrophils 37.8 % (42.0-75.0); Hemoglobin 11.3 g/dL (12.0-16.0); Mean Corpuscular HGB CONC 32.2 g/dL (32.0-36.0); Mean Corpuscular Hemoglobin 28.5 pg (27.0-31.0); Mean Corpuscular Volume 88.6 fl (78.0-98.0); Mean Platelet Volume 11.4 fL (7.4-10.4); Platelet Count 268 10x3/uL (130-400); RBC Distribution Width 14.6 % (11.5-14.5); Red Blood Cell (RBC) Count 3.96 mill/uL (4.20-5.40); White Blood Cell (WBC) Count 6.5 10x3/uL (4.8-10.8)
[2023-05-30 07:05] LABS: Anion Gap 10 mmol/L (10-20); BUN (Urea Nitrogen) 12 mg/dL (9.8-20.1); Calc. Creatinine Clearance 60 mL/min (70-130); Calcium 8.9 mg/dL (7.8-10.44); Carbon Dioxide 28 mmol/L (23-31); Chloride 108 mmol/L (98-107); Estimated GFR 51; Glucose 91 mg/dL (83-110); Potassium 4.2 mmol/L (3.5-5.1); Sodium 142 mmol/L (136-145)
[2023-05-30] MEDS: Aspirin 81 mg Enteric Coated Tablet PO SCH (08:45)
[2023-05-30] MEDS: Cyclobenzaprine 10 MG TAB PO SCH (08:45)
[2023-05-30] MEDS: Flecainide 50 MG TAB PO SCH (08:46)
[2023-05-30] MEDS: Rosuvastatin 5 MG TAB PO SCH (08:46)
[2023-05-30] MEDS: Heparin 5,000 UNITS/ML VIAL SC SCH (08:46)
[2023-05-30] MEDS ORDERED: Losartan 25 MG TAB PO SCH (09:00)
[2023-05-30 11:41] VITALS: BP 127/79; TEMP 97.7
== END 2023-05-30 13:20 | disposition home or self-care (01) | DRG 690 ==
LOC: ERS 15:09 → T4-A 18:45 → OBSVTOIN 05-29 10:57
PROVIDERS: ADMIT Hospitalist; ATTEND Hospitalist
DX: N39.0 Urinary tract infection, site not specified (principal); K57.92 Diverticulitis of intestine, part unspecified, without perforation or abscess without bleeding; N17.9 Acute kidney failure, unspecified; R29.6 Repeated falls; Z66 Do not resuscitate; E78.5 Hyperlipidemia, unspecified; I48.0 Paroxysmal atrial fibrillation; E03.9 Hypothyroidism, unspecified; M79.7 Fibromyalgia; K58.9 Irritable bowel syndrome, unspecified; I11.0 Hypertensive heart disease with heart failure; I50.9 Heart failure, unspecified; G89.29 Other chronic pain; I25.10 Atherosclerotic heart disease of native coronary artery without angina pectoris; K21.9 Gastro-esophageal reflux disease without esophagitis; F39 Unspecified mood [affective] disorder; E86.0 Dehydration; B96.1 Klebsiella pneumoniae [K. pneumoniae] as the cause of diseases classified elsewhere; I44.7 Left bundle-branch block, unspecified; M06.9 Rheumatoid arthritis, unspecified; F41.9 Anxiety disorder, unspecified; F32.A Depression, unspecified; Z90.10 Acquired absence of unspecified breast and nipple; Z88.5 Allergy status to narcotic agent; Z88.1 Allergy status to other antibiotic agents; Z88.8 Allergy status to other drugs, medicaments and biological substances; Z98.84 Bariatric surgery status; Z90.710 Acquired absence of both cervix and uterus; Z79.82 Long term (current) use of aspirin; Z90.49 Acquired absence of other specified parts of digestive tract; Z98.890 Other specified postprocedural states; Z87.81 Personal history of (healed) traumatic fracture; Z82.49 Family history of ischemic heart disease and other diseases of the circulatory system
CPT/HCPCS: 36415; 70450; 71045; 80048; 80053; 81001; 82550; 83735; 84100; 84484; 85025; 87077; 87086; 87186; 93005; 96365; 96372; 96376; G0378; J0696; J1644; J2405; J3490; J7050; J7120

== ENCOUNTER 2023-09-12 21:24 | Inpatient (IN) | payer MEDICARE ==
[~2023-09-12 21:24] MED LIST: Iopamidol-370 76% 500 ML MDV (1 ML CHARGE) ONE
[2023-09-12 22:19] LABS: #Eosinphils 0.1 thou/uL (0.0-0.7); #Monocytes 1.2 thou/uL (0.11-0.59); #Neutrophils 12.8 thou/uL (1.40-6.50); %Basophils 0.2 % (0.0-1.0); %Eosinophils 0.4 % (0.0-10.0); %Lymphocytes 13.8 % (21.0-51.0); %Monocytes 7.5 % (0.0-10.0); %Neutrophils 77.5 % (42.0-75.0); Hematocrit 38.5 % (36.0-47.0); Hemoglobin 12.3 g/dL (12.0-16.0); Mean Corpuscular HGB CONC 31.9 g/dL (32.0-36.0); Mean Corpuscular Hemoglobin 29.2 pg (27.0-31.0); Mean Corpuscular Volume 91.4 fl (78.0-98.0); Mean Platelet Volume 11.1 fL (7.4-10.4); Platelet Count 318 10x3/uL (130-400); Red Blood Cell (RBC) Count 4.21 mill/uL (4.20-5.40); White Blood Cell (WBC) Count 16.5 10x3/uL (4.8-10.8)
[2023-09-12 22:42] LABS: ALT (SGPT) Less than 7 U/L (8-55); AST (SGOT) 12 U/L (5-34); Albumin 4.2 g/dL (3.4-4.8); Alkaline Phosphatase 136 U/L (40-110); Anion Gap 12 mmol/L (10-20); BUN (Urea Nitrogen) 22 mg/dL (9.8-20.1); Bilirubin, Total 0.6 mg/dL (0.2-1.2); Calc. Creatinine Clearance 0 mL/min (70-130); Calcium 8.8 mg/dL (7.8-10.44); Carbon Dioxide 22 mmol/L (23-31); Chloride 108 mmol/L (98-107); Estimated GFR 36; Globulin 2.1 g/dL (2.4-3.5); Glucose 124 mg/dL (83-110); Lipase 9 U/L (8-78); Potassium 4.1 mmol/L (3.5-5.1); Protein, Total 6.3 g/dL (5.8-8.1); Sodium 138 mmol/L (136-145)
[2023-09-12 23:16] LABS: Magnesium 2.2 mg/dL (1.6-2.6)
[2023-09-12] MEDS ORDERED: Dicyclomine 20 MG/2 ML VIAL ONE (23:22)
[2023-09-13] MEDS ORDERED: Ondansetron ODT 4 MG TAB PO PRN (01:43)
[2023-09-13] MEDS ORDERED: Ondansetron PF 4 MG/2 ML Vial IVP PRN (01:43)
[2023-09-13] MEDS ORDERED: 1/2 NS W IV SCH (01:45)
[2023-09-13] MEDS ORDERED: KCL IV SCH (01:45)
[2023-09-13] MEDS ORDERED: D5 IV SCH (01:45)
[2023-09-13 04:36] VITALS: BMI 33.0
[2023-09-13] MEDS: Levothyroxine Sodium 112 MCG TAB PO SCH (04:55)
[2023-09-13] MEDS: Levothyroxine Sodium 25 MCG TAB PO SCH (04:55)
[2023-09-13 08:12] LABS: #Basophils 0.1 thou/uL (0.0-0.2); #Eosinphils 0.3 thou/uL (0.0-0.7); #Monocytes 0.8 thou/uL (0.11-0.59); #Neutrophils 6.1 thou/uL (1.40-6.50); %Basophils 0.5 % (0.0-1.0); %Eosinophils 2.5 % (0.0-10.0); %Lymphocytes 33.1 % (21.0-51.0); %Monocytes 7.2 % (0.0-10.0); %Neutrophils 56.5 % (42.0-75.0); Hematocrit 35.7 % (36.0-47.0); Hemoglobin 11.4 g/dL (12.0-16.0); Mean Corpuscular HGB CONC 31.9 g/dL (32.0-36.0); Mean Corpuscular Hemoglobin 28.8 pg (27.0-31.0); Mean Corpuscular Volume 90.2 fl (78.0-98.0); Mean Platelet Volume 11.3 fL (7.4-10.4); Platelet Count 253 10x3/uL (130-400); RBC Distribution Width 14.1 % (11.5-14.5); Red Blood Cell (RBC) Count 3.96 mill/uL (4.20-5.40); White Blood Cell (WBC) Count 10.8 10x3/uL (4.8-10.8)
[2023-09-13] MEDS: Famotidine/PF 20 mg/2ml Vial SLOW IVP SCH (08:30)
[2023-09-13] MEDS: Ranolazine 500 MG ER.TAB PO SCH ×2 (08:32→20:22)
[2023-09-13] MEDS: Losartan 25 MG TAB PO SCH (08:32)
[2023-09-13] MEDS: Rosuvastatin 5 MG TAB PO SCH (08:32)
[2023-09-13] MEDS: Flecainide 50 MG TAB PO SCH ×2 (08:32→20:22)
[2023-09-13] MEDS: Famotidine 20 MG TAB PO SCH (08:32)
[2023-09-13 08:36] LABS: Anion Gap 12 mmol/L (10-20); BUN (Urea Nitrogen) 17 mg/dL (9.8-20.1); Calc. Creatinine Clearance 57 mL/min (70-130); Calcium 8.1 mg/dL (7.8-10.44); Carbon Dioxide 21 mmol/L (23-31); Chloride 111 mmol/L (98-107); Estimated GFR 47; Glucose 108 mg/dL (83-110); Sodium 140 mmol/L (136-145)
[2023-09-13] MEDS ORDERED: Loperamide HCl 2 MG CAP PO PRN (11:23)
[2023-09-13] MEDS: clonazePAM 1 MG TAB PO PRN (20:22)
[2023-09-13] MEDS: Acetaminophen 325 MG TAB PO PRN (20:29)
[2023-09-14] MEDS: Levothyroxine Sodium 112 MCG TAB PO SCH (05:31)
[2023-09-14] MEDS: Levothyroxine Sodium 25 MCG TAB PO SCH (05:31)
[2023-09-14] MEDS: Famotidine/PF 20 mg/2ml Vial SLOW IVP SCH (08:25)
[2023-09-14] MEDS: Ranolazine 500 MG ER.TAB PO SCH ×2 (08:26→21:19)
[2023-09-14] MEDS: Losartan 25 MG TAB PO SCH (08:26)
[2023-09-14] MEDS: Famotidine 20 MG TAB PO SCH (08:26)
[2023-09-14] MEDS: Rosuvastatin 5 MG TAB PO SCH (08:26)
[2023-09-14] MEDS: clonazePAM 1 MG TAB PO PRN ×2 (08:26→21:19)
[2023-09-14] MEDS: Flecainide 50 MG TAB PO SCH ×2 (08:26→21:19)
[2023-09-14 10:14] LABS: #Basophils 0.1 thou/uL (0.0-0.2); #Eosinphils 0.2 thou/uL (0.0-0.7); #Monocytes 0.7 thou/uL (0.11-0.59); #Neutrophils 4.8 thou/uL (1.40-6.50); %Basophils 0.6 % (0.0-1.0); %Eosinophils 3.1 % (0.0-10.0); %Lymphocytes 26.5 % (21.0-51.0); %Monocytes 8.5 % (0.0-10.0); Hematocrit 35.2 % (36.0-47.0); Hemoglobin 11.1 g/dL (12.0-16.0); Mean Corpuscular HGB CONC 31.5 g/dL (32.0-36.0); Mean Corpuscular Hemoglobin 29.1 pg (27.0-31.0); Mean Corpuscular Volume 92.4 fl (78.0-98.0); Mean Platelet Volume 11.4 fL (7.4-10.4); Platelet Count 263 10x3/uL (130-400); RBC Distribution Width 14.5 % (11.5-14.5); Red Blood Cell (RBC) Count 3.81 mill/uL (4.20-5.40); White Blood Cell (WBC) Count 7.8 10x3/uL (4.8-10.8)
[2023-09-14 10:42] LABS: Troponin I Less than 0.010 ng/mL (< 0.028)
[2023-09-14 10:43] LABS: Anion Gap 11 mmol/L (10-20); BUN (Urea Nitrogen) 10 mg/dL (9.8-20.1); Calc. Creatinine Clearance 67 mL/min (70-130); Calcium 8.5 mg/dL (7.8-10.44); Carbon Dioxide 22 mmol/L (23-31); Chloride 110 mmol/L (98-107); Estimated GFR 57; Glucose 68 mg/dL (83-110); Potassium 3.8 mmol/L (3.5-5.1); Sodium 139 mmol/L (136-145)
[2023-09-14 13:54] LABS: Troponin I Less than 0.010 ng/mL (< 0.028)
[2023-09-14] MEDS: Acetaminophen 325 MG TAB PO PRN (19:24)
[2023-09-15] MEDS: Levothyroxine Sodium 112 MCG TAB PO SCH (05:54)
[2023-09-15] MEDS: Levothyroxine Sodium 25 MCG TAB PO SCH (05:55)
[2023-09-15 07:57] VITALS: BP 129/76; TEMP 98.1
[2023-09-15] MEDS: Famotidine/PF 20 mg/2ml Vial SLOW IVP SCH (08:24)
[2023-09-15] MEDS: Losartan 25 MG TAB PO SCH (08:24)
[2023-09-15] MEDS: clonazePAM 1 MG TAB PO PRN (08:24)
[2023-09-15] MEDS: Flecainide 50 MG TAB PO SCH (08:24)
[2023-09-15] MEDS: Rosuvastatin 5 MG TAB PO SCH (08:24)
[2023-09-15] MEDS: Ranolazine 500 MG ER.TAB PO SCH (08:24)
[2023-09-15] MEDS: Famotidine 20 MG TAB PO SCH (08:24)
== END 2023-09-15 10:25 | disposition home or self-care (01) | DRG 392 ==
LOC: ERS 21:24 → T4-A 09-13 01:59 → OBSVTOIN 09-14 18:18
PROVIDERS: ADMIT Student in an Organized Health Care Education/Training Program; ATTEND Internal Medicine
DX: A08.4 Viral intestinal infection, unspecified (principal); N17.9 Acute kidney failure, unspecified; E78.5 Hyperlipidemia, unspecified; E03.9 Hypothyroidism, unspecified; I50.9 Heart failure, unspecified; I25.10 Atherosclerotic heart disease of native coronary artery without angina pectoris; K21.9 Gastro-esophageal reflux disease without esophagitis; I48.0 Paroxysmal atrial fibrillation; I44.7 Left bundle-branch block, unspecified; I11.0 Hypertensive heart disease with heart failure; G89.29 Other chronic pain; D72.829 Elevated white blood cell count, unspecified; Z90.49 Acquired absence of other specified parts of digestive tract; Z90.710 Acquired absence of both cervix and uterus; Z98.890 Other specified postprocedural states; Z85.3 Personal history of malignant neoplasm of breast; Z88.8 Allergy status to other drugs, medicaments and biological substances; Z88.7 Allergy status to serum and vaccine; Z79.82 Long term (current) use of aspirin; Z79.899 Other long term (current) drug therapy
CPT/HCPCS: 36415; 71045; 74177; 80048; 80053; 83605; 83690; 83735; 83880; 84484; 85025; 87040; 93005; 93010; 94760; 96360; 96361; 96372; G0378; J3480; Q0162; Q9967

== ENCOUNTER 2023-11-24 09:39 | Emergency (ER) | payer MEDICARE, OTHER ==
[2023-11-24 10:22] LABS: #Basophils 0.1 thou/uL (0.0-0.2); #Eosinphils 0.4 thou/uL (0.0-0.7); #Monocytes 0.8 thou/uL (0.11-0.59); #Neutrophils 6.6 thou/uL (1.40-6.50); %Basophils 0.4 % (0.0-1.0); %Eosinophils 3.4 % (0.0-10.0); %Lymphocytes 30.7 % (21.0-51.0); %Monocytes 7.1 % (0.0-10.0); %Neutrophils 57.5 % (42.0-75.0); Hematocrit 36.8 % (36.0-47.0); Hemoglobin 11.8 g/dL (12.0-16.0); Mean Corpuscular HGB CONC 32.1 g/dL (32.0-36.0); Mean Corpuscular Volume 90.4 fl (78.0-98.0); Platelet Count 311 10x3/uL (130-400); RBC Distribution Width 13.2 % (11.5-14.5); Red Blood Cell (RBC) Count 4.07 mill/uL (4.20-5.40); White Blood Cell (WBC) Count 11.4 10x3/uL (4.8-10.8)
[2023-11-24 10:47] LABS: ALT (SGPT) 9 U/L (8-55); AST (SGOT) 12 U/L (5-34); Albumin 3.8 g/dL (3.4-4.8); Alkaline Phosphatase 73 U/L (40-110); Anion Gap 10 mmol/L (10-20); BUN (Urea Nitrogen) 16 mg/dL (9.8-20.1); Bilirubin, Total 0.6 mg/dL (0.2-1.2); Calc. Creatinine Clearance 0 mL/min (70-130); Calcium 8.5 mg/dL (7.8-10.44); Carbon Dioxide 24 mmol/L (23-31); Chloride 108 mmol/L (98-107); Estimated GFR 50; Globulin 2.4 g/dL (2.4-3.5); Glucose 91 mg/dL (83-110); Potassium 3.7 mmol/L (3.5-5.1); Protein, Total 6.2 g/dL (5.8-8.1); Sodium 138 mmol/L (136-145)
[2023-11-24 10:51] LABS: Troponin I Less than 0.010 ng/mL (< 0.028)
[2023-11-24] MEDS ORDERED: Ketorolac Tromethamine 30 MG (1 mL) VIAL ONE (11:22)
[2023-11-24] MEDS ORDERED: Acetaminophen 500 MG TAB ONE (11:22)
== END 2023-11-24 14:15 | disposition home or self-care (01) ==
LOC: ERS 09:39
DX: S30.0XXA Contusion of lower back and pelvis, initial encounter (principal); S70.01XA Contusion of right hip, initial encounter; S70.02XA Contusion of left hip, initial encounter; R00.1 Bradycardia, unspecified; E03.9 Hypothyroidism, unspecified; I48.91 Unspecified atrial fibrillation; I10 Essential (primary) hypertension; Z79.899 Other long term (current) drug therapy; Z79.82 Long term (current) use of aspirin; W19.XXXA Unspecified fall, initial encounter
CPT/HCPCS: 36415; 70450; 72125; 72131; 72170; 80053; 84484; 85025; 93005; 96374; J1885

== ENCOUNTER 2024-02-09 11:09 | Inpatient (IN) | payer MEDICARE ==
[2024-02-09] MEDS ORDERED: Ipratropium/Albuterol 3 ML NEB ONE (12:37)
[2024-02-09 13:15] LABS: ALT (SGPT) Less than 7 U/L (8-55); AST (SGOT) 10 U/L (5-34); Albumin 3.5 g/dL (3.4-4.8); Alkaline Phosphatase 81 U/L (40-110); Anion Gap 13 mmol/L (10-20); BUN (Urea Nitrogen) 7 mg/dL (9.8-20.1); Bilirubin, Total 0.7 mg/dL (0.2-1.2); Calc. Creatinine Clearance 0 mL/min (70-130); Carbon Dioxide 24 mmol/L (23-31); Chloride 108 mmol/L (98-107); Estimated GFR 65; Globulin 2.4 g/dL (2.4-3.5); Glucose 117 mg/dL (83-110); Potassium 3.2 mmol/L (3.5-5.1); Protein, Total 5.9 g/dL (5.8-8.1); Sodium 142 mmol/L (136-145)
[2024-02-09 13:19] LABS: Troponin I Less than 0.010 ng/mL (< 0.028)
[2024-02-09 13:32] LABS: #Basophils 0.1 thou/uL (0.0-0.2); #Eosinphils 0.2 thou/uL (0.0-0.7); #Monocytes 0.9 thou/uL (0.11-0.59); #Neutrophils 7.3 thou/uL (1.40-6.50); %Basophils 0.5 % (0.0-1.0); %Eosinophils 1.8 % (0.0-10.0); %Lymphocytes 23.4 % (21.0-51.0); %Monocytes 8.1 % (0.0-10.0); %Neutrophils 65.7 % (42.0-75.0); Hematocrit 34.4 % (36.0-47.0); Mean Corpuscular Hemoglobin 28.6 pg (27.0-31.0); Mean Corpuscular Volume 89.6 fl (78.0-98.0); Mean Platelet Volume 11.4 fL (7.4-10.4); Platelet Count 326 10x3/uL (130-400); RBC Distribution Width 14.4 % (11.5-14.5); Red Blood Cell (RBC) Count 3.84 mill/uL (4.20-5.40); White Blood Cell (WBC) Count 11.1 10x3/uL (4.8-10.8)
[2024-02-09] MEDS ORDERED: methylPREDNISolone Sod Succ/PF 125 MG/2 ML VIAL ONE (14:03)
[2024-02-09] MEDS ORDERED: Acetaminophen 325 MG TAB PO PRN (14:18)
[2024-02-09] MEDS ORDERED: Ketorolac Tromethamine 30 MG (1 mL) VIAL ONE (15:52)
[2024-02-09 17:10] VITALS: BMI 32.9
[2024-02-09] MEDS: Enoxaparin 40 MG (0.4 mL) SYRINGE SC SCH (18:14)
[2024-02-09] MEDS: Potassium Chloride 20 MEQ TAB PO SCH (18:15)
[2024-02-09] MEDS: Magnesium 2 GM/50 ML(in water) 2 GM in Premix 1 BAG IVPB SCH (18:15)
[2024-02-09] MEDS: Acetaminophen/Codeine 30-300mg Tablet PO PRN (18:27)
[2024-02-09] MEDS: Flecainide 50 MG TAB PO SCH (22:19)
[2024-02-09] MEDS: clonazePAM 1 MG TAB PO SCH (22:19)
[2024-02-09] MEDS: Aspirin 81 mg Enteric Coated Tablet PO SCH (22:19)
[2024-02-09] MEDS: Ranolazine ER 500 MG TAB PO SCH (22:19)
[2024-02-10] MEDS: HYDROcodone/Acetaminophen 5/325 mg Tablet PO PRN (03:13)
[2024-02-10] MEDS: Benzonatate 100 MG CAP PO PRN (04:37)
[2024-02-10] MEDS: Levothyroxine Sodium 25 MCG TAB PO SCH (05:10)
[2024-02-10] MEDS: Levothyroxine Sodium 112 MCG TAB PO SCH (05:10)
[2024-02-10 06:27] LABS: #Monocytes 0.4 thou/uL (0.11-0.59); #Neutrophils 8.2 thou/uL (1.40-6.50); %Basophils 0.1 % (0.0-1.0); %Monocytes 3.9 % (0.0-10.0); %Neutrophils 76.1 % (42.0-75.0); Hematocrit 30.3 % (36.0-47.0); Hemoglobin 9.9 g/dL (12.0-16.0); Mean Corpuscular HGB CONC 32.7 g/dL (32.0-36.0); Mean Corpuscular Hemoglobin 29.5 pg (27.0-31.0); Mean Corpuscular Volume 90.2 fl (78.0-98.0); Mean Platelet Volume 11.4 fL (7.4-10.4); Platelet Count 322 10x3/uL (130-400); RBC Distribution Width 14.6 % (11.5-14.5); Red Blood Cell (RBC) Count 3.36 mill/uL (4.20-5.40); White Blood Cell (WBC) Count 10.7 10x3/uL (4.8-10.8)
[2024-02-10 06:41] LABS: Anion Gap 13 mmol/L (10-20); BUN (Urea Nitrogen) 14 mg/dL (9.8-20.1); Calc. Creatinine Clearance 77 mL/min (70-130); Carbon Dioxide 22 mmol/L (23-31); Chloride 108 mmol/L (98-107); Estimated GFR 72; Glucose 137 mg/dL (83-110); Potassium 3.8 mmol/L (3.5-5.1); Sodium 139 mmol/L (136-145)
[2024-02-10] MEDS ORDERED: methylPREDNISolone Sod Succ/PF 125 MG/2 ML VIAL IVP SCH (09:00)
[2024-02-10] MEDS ORDERED: Levothyroxine Sodium 100 MCG TAB PO SCH (09:00)
[2024-02-10] MEDS: Rosuvastatin 5 MG TAB PO SCH (09:45)
[2024-02-10] MEDS: Losartan 25 MG TAB PO SCH (09:46)
[2024-02-10] MEDS: Enoxaparin 40 MG (0.4 mL) SYRINGE SC SCH (09:46)
[2024-02-10] MEDS: methylPREDNISolone Sod Succ 40 MG VIAL IVP SCH (09:47)
[2024-02-10] MEDS ORDERED: Ipratropium/Albuterol 3 ML NEB NEB PRN (14:11)
[2024-02-10] MEDS: Ipratropium/Albuterol 3 ML NEB NEB SCH (15:18)
[2024-02-10] MEDS: Mometasone 100 MCG/Formoterol 5 MCG 120 PUFF INHALER INH SCH (18:54)
[2024-02-11] MEDS: GUAIFENESIN SF SOLN 200 MG/10 ML UDCUP PO PRN (01:27)
[2024-02-12 07:24] VITALS: BP 150/81; TEMP 97.7
[2024-02-12] MEDS ORDERED: methylPREDNISolone Sod Succ 40 MG VIAL IVP SCH (20:00)
== END 2024-02-12 18:39 | disposition home or self-care (01) | DRG 202 ==
LOC: SUATTDRO 11:09 → ERS 11:09 → OBSVTOIN 14:21 → T4-B 14:21
PROVIDERS: ADMIT Internal Medicine; ATTEND Internal Medicine
DX: J45.901 Unspecified asthma with (acute) exacerbation (principal); J44.1 Chronic obstructive pulmonary disease with (acute) exacerbation; Z91.048 Other nonmedicinal substance allergy status; Z88.8 Allergy status to other drugs, medicaments and biological substances; Z79.899 Other long term (current) drug therapy; Z79.82 Long term (current) use of aspirin; K21.9 Gastro-esophageal reflux disease without esophagitis; I25.10 Atherosclerotic heart disease of native coronary artery without angina pectoris; E03.9 Hypothyroidism, unspecified; M06.9 Rheumatoid arthritis, unspecified; F41.9 Anxiety disorder, unspecified; F32.A Depression, unspecified; F17.290 Nicotine dependence, other tobacco product, uncomplicated; Z90.49 Acquired absence of other specified parts of digestive tract; Z90.710 Acquired absence of both cervix and uterus; Z82.49 Family history of ischemic heart disease and other diseases of the circulatory system; I48.0 Paroxysmal atrial fibrillation; E87.6 Hypokalemia; D64.9 Anemia, unspecified; I10 Essential (primary) hypertension; E78.5 Hyperlipidemia, unspecified
CPT/HCPCS: 36415; 71045; 80048; 80053; 83605; 83880; 84484; 85025; 87633; 87798; 93005; 94640; 94799; 96374; 96375; J1650; J1885; J2920; J2930; J7620

== ENCOUNTER 2024-05-07 23:23 | Emergency (ER) | payer MEDICARE, OTHER ==
[2024-05-08 00:14] LABS: #Basophils 0.04 10x3/uL (0.0-0.2); %Basophils 0.5 % (0.0-1.0); %Eosinophils 4.2 % (0.0-10.0); %Lymphocytes 44.8 % (21.0-51.0); %Monocytes 8.2 % (0.0-10.0); Hematocrit 37.6 % (36.0-47.0); Mean Corpuscular HGB CONC 31.9 g/dL (32.0-36.0); Mean Corpuscular Hemoglobin 28.1 pg (27.0-31.0); Mean Corpuscular Volume 88.1 fL (78.0-98.0); Mean Platelet Volume 11.3 fL (7.4-10.4); Platelet Count 283 10x3/uL (130-400); RBC Distribution Width 14.7 % (11.5-14.5); Red Blood Cell (RBC) Count 4.27 mill/uL (4.20-5.40)
[2024-05-08 00:40] LABS: ALT (SGPT) Less than 5 U/L (8-55); AST (SGOT) 10 U/L (5-34); Acetaminophen Less than 10 mcg/mL (10.0-30.0); Albumin 3.5 g/dL (3.4-4.8); Alcohol Less than 10.0 mg/dL (Less than 10); Alkaline Phosphatase 74 U/L (40-110); Anion Gap 14 mmol/L (10-20); BUN (Urea Nitrogen) 18 mg/dL (9.8-20.1); Bilirubin, Total 0.4 mg/dL (0.2-1.2); Calc. Creatinine Clearance 0 mL/min (70-130); Carbon Dioxide 21 mmol/L (23-31); Chloride 110 mmol/L (98-107); Estimated GFR 63; Globulin 2.7 g/dL (2.4-3.5); Glucose 98 mg/dL (83-110); Potassium 3.3 mmol/L (3.5-5.1); Protein, Total 6.2 g/dL (5.8-8.1); Salicylate Less than 8.0 mg/dL (15.0-30.0); Sodium 142 mmol/L (136-145)
[2024-05-08] MEDS ORDERED: Acetaminophen 500 MG TAB ONE (02:04)
[2024-05-08] MEDS ORDERED: Potassium Chloride 20 MEQ TAB ONE (02:04)
[2024-05-08] MEDS ORDERED: HYDROcodone/Acetaminophen 10/325 mg Tablet ONE (03:18)
[2024-05-08 05:26] LABS: Amphetamine Not Detected (NotDetected); Barbiturates Screen Not Detected (NotDetected); Benzodiazepine Screen Not Detected (NotDetected); Cocaine Metabolite Screen Not Detected (NotDetected); Methadone Not Detected (NotDetected); Methamphetamine Not Detected (NotDetected); Opiate Screen Detected (NotDetected); Oxycodone Screen Not Detected (NotDetected); Phencyclidine (PCP) Not Detected (NotDetected); THC/Cannabinoid Screen Not Detected (NotDetected); Tricyclic Screen Not Detected (NotDetected)
[2024-05-08 05:27] LABS: Bacteria/HPF 2+ HPF (None Seen); Bilirubin Negative (Negative); Blood, Urine Negative (Negative); CAUTI Indications for Culture Pelvic or flank pain; Clarity Clear (Clear); Glucose, Urine (Dipstick) Normal (Negative); Ketone, Urine Negative (Negative); Leukocyte 250 Leu/uL (Negative); Nitrite 1+ (Negative); Protein, Urine (Dipstick) Negative (Neg-Trace); RBC/HPF 0-3 HPF (0-3); Specific Gravity, Urine 1.028 (1.002-1.036); Urobilinogen Normal mg/dL (Less than 2)
[2024-05-08 05:28] LABS: Urine Culture Reflex No No
[2024-05-08] MEDS ORDERED: Iopamidol-370 76% 500 ML MDV (1 ML CHARGE) ONE (11:31)
== END 2024-05-08 06:48 | disposition home or self-care (01) ==
LOC: ERS 23:23
DX: S50.12XA Contusion of left forearm, initial encounter (principal); S50.11XA Contusion of right forearm, initial encounter; N39.0 Urinary tract infection, site not specified; W01.10XA Fall on same level from slipping, tripping and stumbling with subsequent striking against unspecified object, initial encounter
CPT/HCPCS: 70450; 71045; 72125; 73030; 74177; 80306; 80307; 81001; 93005; 99284; Q9967; 80053; 84443; 85025

== ENCOUNTER 2024-05-24 11:19 | Emergency (ER) | payer MEDICARE, OTHER ==
[2024-05-24 12:03] LABS: #Basophils 0.07 10x3/uL (0.0-0.2); %Basophils 0.6 % (0.0-1.0); %Eosinophils 3.9 % (0.0-10.0); %Lymphocytes 31.6 % (21.0-51.0); %Neutrophils 55.3 % (42.0-75.0); Hematocrit 31.9 % (36.0-47.0); Mean Corpuscular HGB CONC 31.3 g/dL (32.0-36.0); Mean Corpuscular Hemoglobin 27.3 pg (27.0-31.0); Mean Corpuscular Volume 87.2 fL (78.0-98.0); Mean Platelet Volume 12.4 fL (7.4-10.4); Platelet Count 224 10x3/uL (130-400); RBC Distribution Width 14.3 % (11.5-14.5); Red Blood Cell (RBC) Count 3.66 mill/uL (4.20-5.40)
[2024-05-24 12:22] LABS: ALT (SGPT) 9 U/L (8-55); AST (SGOT) 17 U/L (5-34); Albumin 2.9 g/dL (3.4-4.8); Alkaline Phosphatase 64 U/L (40-110); Anion Gap 12 mmol/L (10-20); BUN (Urea Nitrogen) 8 mg/dL (9.8-20.1); Bilirubin, Total 0.4 mg/dL (0.2-1.2); Calc. Creatinine Clearance 0 mL/min (70-130); Calcium 7.8 mg/dL (7.8-10.44); Carbon Dioxide 20 mmol/L (23-31); Chloride 112 mmol/L (98-107); Estimated GFR 58; Globulin 2.4 g/dL (2.4-3.5); Glucose 81 mg/dL (83-110); Potassium 3.7 mmol/L (3.5-5.1); Protein, Total 5.3 g/dL (5.8-8.1); Sodium 140 mmol/L (136-145)
[2024-05-24 12:27] LABS: Troponin I Less than 0.010 ng/mL (< 0.028)
[2024-05-24 12:33] LABS: INR-International Normal Ratio 1.1; Prothrombin Time 13.7 sec (12.0-14.7)
[2024-05-24] MEDS ORDERED: HYDROcodone/Acetaminophen 5/325 mg Tablet ONE (14:57)
== END 2024-05-24 18:54 | disposition home or self-care (01) ==
LOC: ERS 11:19
DX: S42.215A Unspecified nondisplaced fracture of surgical neck of left humerus, initial encounter for closed fracture (principal); R55 Syncope and collapse; I10 Essential (primary) hypertension; E03.9 Hypothyroidism, unspecified; Z79.899 Other long term (current) drug therapy; Z79.890 Hormone replacement therapy; W01.0XXA Fall on same level from slipping, tripping and stumbling without subsequent striking against object, initial encounter
CPT/HCPCS: 36415; 70450; 71045; 80053; 84484; 85025; 85610; 85730; 93005; 94760

== ENCOUNTER 2024-06-08 07:26 | Emergency (ER) | payer MEDICARE ==
[2024-06-08 08:43] LABS: #Basophils 0.06 10x3/uL (0.0-0.2); %Basophils 0.5 % (0.0-1.0); %Eosinophils 2.7 % (0.0-10.0); %Lymphocytes 24.2 % (21.0-51.0); %Monocytes 6.8 % (0.0-10.0); %Neutrophils 65.3 % (42.0-75.0); Hematocrit 38.4 % (36.0-47.0); Hemoglobin 12.4 g/dL (12.0-16.0); Mean Corpuscular HGB CONC 32.3 g/dL (32.0-36.0); Mean Corpuscular Hemoglobin 28.2 pg (27.0-31.0); Mean Corpuscular Volume 87.3 fL (78.0-98.0); Mean Platelet Volume 10.1 fL (7.4-10.4); Platelet Count 480 10x3/uL (130-400); RBC Distribution Width 15.6 % (11.5-14.5)
[2024-06-08] MEDS ORDERED: Morphine 2 MG/ML VIAL ONE ×2 (09:02→09:15)
[2024-06-08 09:05] LABS: ALT (SGPT) 7 U/L (8-55); AST (SGOT) 13 U/L (5-34); Albumin 3.4 g/dL (3.4-4.8); Alkaline Phosphatase 121 U/L (40-110); Anion Gap 16 mmol/L (10-20); BUN (Urea Nitrogen) 15 mg/dL (9.8-20.1); Bilirubin, Total 0.8 mg/dL (0.2-1.2); Calc. Creatinine Clearance 0 mL/min (70-130); Calcium 9.3 mg/dL (7.8-10.44); Carbon Dioxide 22 mmol/L (23-31); Chloride 105 mmol/L (98-107); Estimated GFR 54; Globulin 3.1 g/dL (2.4-3.5); Glucose 103 mg/dL (83-110); Potassium 4.4 mmol/L (3.5-5.1); Protein, Total 6.5 g/dL (5.8-8.1); Sodium 139 mmol/L (136-145)
[2024-06-08 10:04] LABS: Prothrombin Time 13.6 sec (12.0-14.7)
== END 2024-06-08 10:55 | disposition home or self-care (01) ==
LOC: ERS 07:26
DX: K58.9 Irritable bowel syndrome, unspecified (principal); K92.2 Gastrointestinal hemorrhage, unspecified; M32.9 Systemic lupus erythematosus, unspecified; M79.7 Fibromyalgia; I48.91 Unspecified atrial fibrillation; I10 Essential (primary) hypertension; E03.9 Hypothyroidism, unspecified; F41.8 Other specified anxiety disorders; I45.10 Unspecified right bundle-branch block; M41.9 Scoliosis, unspecified; Z55.0 Illiteracy and low-level literacy; Z79.899 Other long term (current) drug therapy
CPT/HCPCS: 71045; 74177; 80053; 85025; 85610; 85730; 93005; 96374; 99285; J2272; 82274

== ENCOUNTER 2024-10-30 17:10 | Inpatient (IN) | payer MEDICARE ==
[2024-10-30 18:17] LABS: #Basophils 0.06 10x3/uL (0.0-0.2); %Basophils 0.8 % (0.0-1.0); %Eosinophils 2.7 % (0.0-10.0); %Lymphocytes 52.4 % (21.0-51.0); %Monocytes 7.8 % (0.0-10.0); Hematocrit 35.9 % (36.0-47.0); Hemoglobin 11.1 g/dL (12.0-16.0); Mean Corpuscular HGB CONC 30.9 g/dL (32.0-36.0); Mean Corpuscular Hemoglobin 28.1 pg (27.0-31.0); Mean Corpuscular Volume 90.9 fL (78.0-98.0); Platelet Count 296 10x3/uL (130-400); RBC Distribution Width 14.3 % (11.5-14.5); Red Blood Cell (RBC) Count 3.95 mill/uL (4.20-5.40)
[2024-10-30 18:29] LABS: ALT (SGPT) Less than 5 U/L (8-55); AST (SGOT) 10 U/L (5-34); Albumin 3.4 g/dL (3.4-4.8); Alkaline Phosphatase 66 U/L (40-110); Anion Gap 14 mmol/L (10-20); BUN (Urea Nitrogen) 15 mg/dL (9.8-20.1); Bilirubin, Total 0.5 mg/dL (0.2-1.2); Calc. Creatinine Clearance 0 mL/min (70-130); Calcium 8.4 mg/dL (7.8-10.44); Carbon Dioxide 21 mmol/L (23-31); Chloride 109 mmol/L (98-107); Estimated GFR 63; Globulin 2.5 g/dL (2.4-3.5); Glucose 93 mg/dL (83-110); Potassium 3.6 mmol/L (3.5-5.1); Protein, Total 5.9 g/dL (5.8-8.1); Sodium 140 mmol/L (136-145)
[2024-10-30 18:35] LABS: PTT 31.6 sec (22.9-36.1); Prothrombin Time 13.5 sec (12.0-14.7); Troponin I Less than 0.010 ng/mL (< 0.028)
[2024-10-30 19:49] LABS: Bilirubin Negative (Negative); Blood, Urine Negative (Negative); CAUTI Indications for Culture Pelvic or flank pain; Clarity Turbid (Clear); Glucose, Urine (Dipstick) Normal (Negative); Ketone, Urine Negative (Negative); Leukocyte 500 Leu/uL (Negative); Nitrite 2+ (Negative); Protein, Urine (Dipstick) Negative (Neg-Trace); RBC/HPF 0-3 HPF (0-3); Specific Gravity, Urine 1.013 (1.002-1.036); WBC/HPF Greater than 50 HPF (0-3)
[2024-10-30 19:58] LABS: Bacteria/HPF 4+ HPF (None Seen)
[2024-10-30 20:01] LABS: Yeast-Budding None Seen HPF (None Seen)
[2024-10-30 20:02] LABS: Urine Culture Reflex Yes Yes
[2024-10-30 20:53] LABS: Troponin I Less than 0.010 ng/mL (< 0.028)
[2024-10-30] MEDS ORDERED: cefTRIAXone (ROCEPHIN) 2 GM VIAL ONE (21:09)
[2024-10-30] MEDS ORDERED: Aspirin Chewable 81 MG TAB ONE (21:09)
[2024-10-30] MEDS ORDERED: Sodium Chloride 0.9% 100 ML ONE (21:09)
[2024-10-30 23:32] VITALS: BMI 30.9
[2024-10-30] MEDS ORDERED: clonazePAM 1 MG TAB PO PRN (23:35)
[2024-10-30] MEDS ORDERED: Ondansetron PF 4 MG/2 ML Vial IVP PRN (23:37)
[2024-10-30] MEDS ORDERED: Ondansetron ODT 4 MG TAB PO PRN (23:37)
[2024-10-30] MEDS ORDERED: Acetaminophen 650 MG Suppository PR PRN (23:37)
[2024-10-30 23:45] LABS: Troponin I Less than 0.010 ng/mL (< 0.028)
[2024-10-31] MEDS: Acetaminophen 325 MG TAB PO SCH (00:34)
[2024-10-31 02:51] LABS: Troponin I Less than 0.010 ng/mL (< 0.028)
[2024-10-31] MEDS: Morphine 2 MG/ML VIAL SLOW IVP SCH (03:54)
[2024-10-31 04:39] LABS: #Basophils 0.06 10x3/uL (0.0-0.2); %Basophils 0.8 % (0.0-1.0); %Eosinophils 3.1 % (0.0-10.0); %Lymphocytes 55.8 % (21.0-51.0); %Monocytes 7.4 % (0.0-10.0); %Neutrophils 32.8 % (42.0-75.0); Hematocrit 34.5 % (36.0-47.0); Hemoglobin 11.1 g/dL (12.0-16.0); Mean Corpuscular HGB CONC 32.2 g/dL (32.0-36.0); Mean Corpuscular Hemoglobin 28.5 pg (27.0-31.0); Mean Corpuscular Volume 88.7 fL (78.0-98.0); Mean Platelet Volume 11.2 fL (7.4-10.4); Platelet Count 311 10x3/uL (130-400); RBC Distribution Width 14.4 % (11.5-14.5); Red Blood Cell (RBC) Count 3.89 mill/uL (4.20-5.40)
[2024-10-31 04:53] LABS: Anion Gap 11 mmol/L (10-20); BUN (Urea Nitrogen) 12 mg/dL (9.8-20.1); Calc. Creatinine Clearance 68 mL/min (70-130); Calcium 8.5 mg/dL (7.8-10.44); Carbon Dioxide 23 mmol/L (23-31); Chloride 111 mmol/L (98-107); Estimated GFR 67; Glucose 141 mg/dL (83-110); Potassium 3.2 mmol/L (3.5-5.1); Sodium 142 mmol/L (136-145)
[2024-10-31] MEDS: Levothyroxine Sodium 25 MCG TAB PO SCH (05:24)
[2024-10-31] MEDS: Levothyroxine Sodium 112 MCG TAB PO SCH (05:24)
[2024-10-31] MEDS ORDERED: Electrolyte Replacement Protocol 1 EACH FS PRN (06:29)
[2024-10-31] MEDS ORDERED: Levothyroxine Sodium 100 MCG TAB PO SCH (09:00)
[2024-10-31] MEDS: Mometasone 100 MCG/Formoterol 5 MCG 120 PUFF INHALER INH SCH (09:28)
[2024-10-31] MEDS: Potassium Chloride 20 MEQ TAB PO SCH (10:16)
[2024-10-31] MEDS: cefTRIAXone\\ROCEPHIN 1 GM in Sodium Chloride 0.9% 100 ML IVPB SCH (10:16)
[2024-10-31] MEDS: Ranolazine ER 500 MG TAB PO SCH (10:16)
[2024-10-31] MEDS: Rosuvastatin 5 MG TAB PO SCH (10:17)
[2024-10-31] MEDS: Flecainide 50 MG TAB PO SCH (10:17)
[2024-10-31] MEDS: Polyethylene Glycol 3350 17 GM Packet PO SCH (10:17)
[2024-10-31 13:34] VITALS: BMI 30.9
[2024-10-31] MEDS ORDERED: Electrolyte Replacement Protocol FS PRN (14:15)
[2024-10-31] MEDS: oxyCODONE 5 MG TAB PO PRN (14:24)
[2024-10-31] MEDS: Losartan 25 MG TAB PO SCH (20:35)
[2024-10-31] MEDS: Aspirin 81 mg Enteric Coated Tablet PO SCH (20:35)
[2024-11-01] MEDS ORDERED: Regadenoson 0.4 MG/5 ML SYRINGE ONE (09:31)
[2024-11-01 12:34] LABS: Anion Gap 13 mmol/L (10-20); BUN (Urea Nitrogen) 16 mg/dL (9.8-20.1); Calc. Creatinine Clearance 74 mL/min (70-130); Calcium 8.9 mg/dL (7.8-10.44); Carbon Dioxide 26 mmol/L (23-31); Chloride 103 mmol/L (98-107); Estimated GFR 74; Glucose 94 mg/dL (83-110); Potassium 3.9 mmol/L (3.5-5.1); Sodium 138 mmol/L (136-145)
[2024-11-01 12:36] LABS: #Basophils 0.06 10x3/uL (0.0-0.2); %Basophils 0.7 % (0.0-1.0); %Eosinophils 2.7 % (0.0-10.0); %Lymphocytes 56.6 % (21.0-51.0); %Neutrophils 33.6 % (42.0-75.0); Hematocrit 35.5 % (36.0-47.0); Hemoglobin 11.1 g/dL (12.0-16.0); Mean Corpuscular HGB CONC 31.3 g/dL (32.0-36.0); Mean Corpuscular Volume 89.4 fL (78.0-98.0); Mean Platelet Volume 11.3 fL (7.4-10.4); Platelet Count 314 10x3/uL (130-400); RBC Distribution Width 14.4 % (11.5-14.5); Red Blood Cell (RBC) Count 3.97 mill/uL (4.20-5.40)
[2024-11-01 17:48] VITALS: BP 132/61; TEMP 98.1
[2024-11-03] MEDS ORDERED: FLU (Fluad Triv) TS24-25 (65UP)/MF59C/PF 45 MCG/0.5 ML Syringe IM ONE (09:00)
== END 2024-11-01 19:33 | disposition home or self-care (01) | DRG 313 ==
LOC: ERS 17:10 → OBS 21:17 → OBSVTOIN 11-01 09:15
PROVIDERS: ADMIT Student in an Organized Health Care Education/Training Program; ATTEND Student in an Organized Health Care Education/Training Program
DX: R07.9 Chest pain, unspecified (principal); N39.0 Urinary tract infection, site not specified; I50.32 Chronic diastolic (congestive) heart failure; I11.0 Hypertensive heart disease with heart failure; I48.91 Unspecified atrial fibrillation; E78.5 Hyperlipidemia, unspecified; I25.10 Atherosclerotic heart disease of native coronary artery without angina pectoris; Z66 Do not resuscitate; K21.9 Gastro-esophageal reflux disease without esophagitis; G89.29 Other chronic pain; E89.0 Postprocedural hypothyroidism; M79.7 Fibromyalgia; Z88.5 Allergy status to narcotic agent; Z88.8 Allergy status to other drugs, medicaments and biological substances; Z91.048 Other nonmedicinal substance allergy status; Z90.49 Acquired absence of other specified parts of digestive tract; Z90.3 Acquired absence of stomach [part of]; Z90.710 Acquired absence of both cervix and uterus; Z79.899 Other long term (current) drug therapy; Z79.890 Hormone replacement therapy
CPT/HCPCS: 36415; 36416; 70450; 71045; 78452; 80048; 80053; 81001; 84484; 85025; 85610; 85730; 87077; 87086; 87186; 93005; 93017; 94760; 96374; A9502; J0696; J2272; J2785